=== PATIENT | male | born 1965 | race Caucasian/White ===

== ENCOUNTER 2021-12-24 18:29 | Emergency (ER) | payer BC ==
[~2021-12-24] VITALS: Ht 175.3 cm; Wt 77.1 kg
[2021-12-24] MEDS ORDERED: ASPERFLEX1 EACH TOP (23:47)
[2021-12-24] MEDS ORDERED: VALIUM5 MG PO (23:47)
[2021-12-24] MEDS ORDERED: IBU600 MG PO (23:47)
--- NOTE | 2021-12-25 12:38 | EKG ---
[facility] [address] [facility] [place], [place] [address] Signed Normal sinus rhythm Normal ECG No previous ECGs available Confirmed by RICHAR SAUCEDO MD ([id number] on 12/25/2021 12:38:06 PM Electronically Signed By: RICHAR SAUCEDO MD 12/25/21 1238 PATIENT NAME: JANETH HOGAN Electrocardiogram DATE OF : 63 PHYSICIAN: RCIHAR SAUCEDO MD REPORT #: [id number] REPORT IS CONFIDENTIAL AND NOT TO BE RELEASED WITHOUT AUTHORIZATION
== END 2021-12-24 23:55 | disposition home or self-care (01) ==
LOC: ED 18:29
DX: D64.9 Anemia, unspecified (principal); R10.9 Unspecified abdominal pain; R74.01 Elevation of levels of liver transaminase levels
CPT/HCPCS: 36415; 71046; 74176; 80053; 80503; 81001; 83880; 84484; 85025; 85379; 93005; 93010; 96374; 99284-25; J1885